=== PATIENT | male | born 1980 | race Caucasian/White ===

== ENCOUNTER 2016-08-02 14:12 | Outpatient (CLI) | payer MEDICARE, OTHER | END 2016-08-02 14:13 | LOC: LAB 14:12 | PROVIDERS: ATTEND Physician Assistant | DX: Z71.1 Person with feared health complaint in whom no diagnosis is made (principal) | CPT/HCPCS: 36415; 86703; 87491; 87591 ==

== ENCOUNTER 2017-05-06 15:09 | Outpatient (CLI) | payer MEDICARE, OTHER | END 2017-05-06 15:10 | LOC: LAB 15:09 | PROVIDERS: ATTEND Physician Assistant | DX: Z11.3 Encounter for screening for infections with a predominantly sexual mode of transmission (principal) | CPT/HCPCS: 36415; 86703; 87491; 87591 ==